=== PATIENT | female | born 1965 | race Caucasian/White ===

== ENCOUNTER → 2020-02-13 | Outpatient (CLI) | payer OTHER ==
--- NOTE | 2020-02-13 10:19 | KCIC ---
SHOULDER 2+V RIGHT 02/13/2020 12:00 AM INDICATION: Right shoulder pain COMPARISON: None available. TECHNIQUE: 3 views of the right shoulder are provided. FINDINGS/ IMPRESSION: There is no acute fracture or dislocation. Joint spaces are maintained. Bone mineralization is within normal limits. Regional soft tissues are within normal limits. There is no soft tissue gas or osseous erosion. No radiopaque foreign body. Mineralization is identified along the superolateral aspect of the humeral head as may be significant calcific tendinitis. Electronically signed by: Gladis Pinto MD (02/13/2020 10:16 AM) [id number]
== END | disposition home or self-care (01) ==
LOC: KCIC 09:00
PROVIDERS: ATTEND Physician Assistant
DX: M75.31 Calcific tendinitis of right shoulder (principal); G89.29 Other chronic pain
CPT/HCPCS: 73030